=== PATIENT | female | born 1985 | race Caucasian/White ===

== ENCOUNTER 2021-07-10 14:41 | Emergency (ER) | payer SELFPAY ==
[2021-07-10 14:58] VITALS: O2SAT 100
--- NOTE | 2021-07-10 15:35 | ERPHSYRPT ---
- History of Present Illness Time Seen by Provider: 07/10/21 14:44 Source: patient Exam Limitations: no limitations Patient Subjective Stated Complaint: Pt states that she had some pressure behind her eyes last night and then in the parking lot she felt like something was stuck in her throat and she spit up blood, no pressure in her eyes today but that is why she originally came here Triage Nursing Assessment: Pt was brought to the ER by her mother, tachycardic, denies pain, tearful, denies pain in eyes today but states that's why she came in, states that it feels like something is stuck in her throat but this just began in the parking lot, skin n/w/d, no difficulties with breathing, spitting in a bag, doesn't appear to be in any distress Physician History: 36 years old female presented in the ER with chief complaint of spitting up blood prior to arrival. Patient reports she was in the parking lot and felt as if something is stuck in her throat and spitted up a streak of blood 1 time. She complained of some scratchiness in the throat since last night without any difficulty swallowing or breathing. Denies any fever or chills. Patient also reports having pain behind her eyeballs yesterday which improved and currently she does not have any symptoms. Denies any blurry vision/double vision/numbness tingling or focal weakness now are yesterday. Patient is very anxious. Allergies/Adverse Reactions: latex Allergy (Verified 07/10/21 14:57) Home Medications: No Reportable Medications [No Reported Medications] 07/10/21 [History] Hx Tetanus, Diphtheria Vaccination/Date Given: Yes (3 years ago) Hx Influenza Vaccination/Date Given: No Hx Pneumococcal Vaccination/Date Given: No Travel Risk - International Travel Have you traveled outside of the country in past 3 weeks: No - Coronavirus Screening Are you exhibiting any of the following symptoms?: No Close contact with a COVID-19 positive Pt in past 14-21 Days: No - Vaccine Status Have you recieved a Covid-19 vaccination: No - Review of Systems Constitutional: No Symptoms Eyes: No Symptoms Ears, Nose, & Throat: Throat Pain Respiratory: No Symptoms Cardiac: No Symptoms Abdominal/Gastrointestinal: No Symptoms Genitourinary Symptoms: No Symptoms Musculoskeletal: No Symptoms Skin: No Symptoms Neurological: No Symptoms Psychological: Anxiety Endocrine: No Symptoms Hematologic/Lymphatic: No Symptoms Immunological/Allergic: No Symptoms - Past Medical History Pertinent Past Medical History: Yes Neurological History: No Pertinent History ENT History: No Pertinent History Cardiac History: Arrhythmia Respiratory History: No Pertinent History Endocrine Medical History: No Pertinent History Musculoskeletal History: No Pertinent History GI Medical History: No Pertinent History History: No Pertinent History Psycho-Social History: Anxiety Female Reproductive Disorders: No Pertinent History - Past Surgical History Past Surgical History: Yes Neuro Surgical History: No Pertinent History Cardiac: No Pertinent History Respiratory: No Pertinent History Gastrointestinal: No Pertinent History Genitourinary: No Pertinent History Musculoskeletal: No Pertinent History Female Surgical History: Section - Social History Smoking Status: Current every day smoker How long have you smoked: 15 Exposure to second hand smoke: Yes Drug Use: none Patient Lives Alone: No Significant Family History: STONES - Female History Hx Last Menstrual Period: 06/13/2021 Hx Now: No - Nursing Vital Signs Nursing Vital Signs: Initial Vital Signs Temperature 98.5 F 07/10/21 14:44 Pulse Rate 111 H 07/10/21 14:44 Blood Pressure 138/76 07/10/21 14:44 O2 Sat by Pulse Oximetry 100 07/10/21 14:44 Pain Scale Pain Intensity 0 - Physical Exam General Appearance: no apparent distress, alert, anxiety Eye Exam: bilateral eye: normal inspection, PERRL, EOMI Ear Exam: bilateral ear: auricle normal, canal normal, TM normal Nasal Exam: normal inspection Throat Exam: moist mucus membranes, pharynx tenderness (Mild diffuse erythema oropharynx with some postnasal drip. 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, normal mood/affect (Anxious), nml cerebellar function, nml station & gait, sensation nml, motor deficits (Some chronic weakness right upper extremity) Skin Exam: normal color SpO2 Interpretation: normal SpO2: 100 O2 Delivery: Room Air - Course EKG Interpreted by Me: RATE (89), Sinus Rhythm, NORMAL AXIS, NORMAL INTERVALS, NORMAL QRS Ordered Tests: Active Orders 24 hr Category Date Time Status Tele-Health Consult ROUTINE Cons 12/31/21 16:01 Active HEAD WITHOUT CONTRAST [CT] Stat Exams 07/10/21 16:32 Completed CBC W DIFF Stat Lab 07/10/21 16:16 Completed CMP Stat Lab 07/10/21 16:16 Completed CULTURE,URINE Stat Lab 07/10/21 16:01 Received HCG,QUALITATIVE URINE Stat Lab 07/10/21 16:00 Completed TROPONIN Q3H Lab 07/10/21 16:16 Completed TROPONIN Q3H Lab 07/10/21 19:15 Ordered TROPONIN Q3H Lab 07/10/21 22:15 Ordered UA W/RFX UR CULTURE Stat Lab 07/10/21 16:01 Completed Urine Triage Profile Stat Lab 07/10/21 16:01 Completed Lab/Rad Data: Laboratory Result Diagrams 07/10/21 16:16 07/10/21 16:16 Laboratory Results 07/10/21 07/10/21 07/10/21 Range/Units 16:16 16:16 16:16 WBC 5.5 (4.0-10.5) K/mm3 RBC 4.64 (4.1-5.4) M/mm3 Hgb 14.0 (12.0-16.0) gm/dl Hct 41.2 (35-47) % MCV 88.8 (78-100) fl MCH 30.2 (26-32) pg MCHC 34.0 (32-36) g/dl RDW 13.0 (11.5-14.0) % Plt Count 229 (150-450) K/mm3 MPV 10.4 (7.5-11.0) fl Gran % 58.3 (36.0-66.0) % Eos # (Auto) 0.08 (0-0.5) Absolute Lymphs (auto) 1.67 (1.0-4.6) Absolute Monos (auto) 0.52 (0.0-1.3) Lymphocytes % 30.5 (24.0-44.0) % Monocytes % 9.5 (0.0-12.0) % Eosinophils % 1.5 (0.00-5.0) % Basophils % 0.2 (0.0-0.4) % Absolute Granulocytes 3.19 (1.4-6.9) Basophils # 0.01 (0-0.4) Sodium 138 (137-145) mmol/L Potassium 3.7 (3.5-5.1) mmol/L Chloride 103 (98-107) mmol/L Carbon Dioxide 25 (22-30) mmol/L Anion Gap 13.4 (5-15) MEQ/L BUN 11 (7-17) mg/dL Creatinine 0.57 (0.52-1.04) mg/dL Estimated GFR > 60.0 ML/MIN Glucose 91 (74-106) mg/dL Calcium 9.3 (8.4-10.2) mg/dL Total Bilirubin 0.50 (0.2-1.3) mg/dL AST 17 (14-36) U/L ALT 11 (0-35) U/L Alkaline Phosphatase 55 (38-126) U/L Troponin I < 0.012 (0.000-0.034) ng/mL Serum Total Protein 7.2 (6.3-8.2) g/dL Albumin 4.3 (3.5-5.0) g/dL Urine Color (YELLOW) Urine Appearance (CLEAR) Urine pH (5-6) Ur Specific [place] (1.005-1.025) Urine Protein (Negative) Urine Ketones (NEGATIVE) Urine Blood (0-5) Pepe/ul Urine Nitrite (NEGATIVE) Urine Bilirubin (NEGATIVE) Urine Urobilinogen (0-1) mg/dL Ur Leukocyte Esterase (NEGATIVE) Urine WBC (Auto) (0-5) /HPF Urine RBC (Auto) (0-2) /HPF U Epithel Cells (Auto) (FEW) /HPF Urine Bacteria (Auto) (NEGATIVE) /HPF Urine Mucus (Auto) (NEGATIVE) /HPF Urine Culture Reflexed (NO) Urine Glucose (NEGATIVE) mg/dL Urine HCG, Qual (Negative) Urine Opiates Level (NEGATIVE) Ur Methadone (NEGATIVE) Urine Barbiturates (NEGATIVE) Ur Phencyclidine (PCP) (NEGATIVE) Urine Amphetamine (NEGATIVE) U Benzodiazepine Level (NEGATIVE) Urine Cocaine (NEGATIVE) Urine Marijuana (THC) (NEGATIVE) Group A Strep Antibody (NEGATIVE) 07/10/21 07/10/21 07/10/21 Range/Units 16:01 16:01 16:00 WBC (4.0-10.5) K/mm3 RBC (4.1-5.4) M/mm3 Hgb (12.0-16.0) gm/dl Hct (35-47) % MCV (78-100) fl MCH (26-32) pg MCHC (32-36) g/dl RDW (11.5-14.0) % Plt Count (150-450) K/mm3 MPV (7.5-11.0) fl Gran % (36.0-66.0) % Eos # (Auto) (0-0.5) Absolute Lymphs (auto) (1.0-4.6) Absolute Monos (auto) (0.0-1.3) Lymphocytes % (24.0-44.0) % Monocytes % (0.0-12.0) % Eosinophils % (0.00-5.0) % Basophils % (0.0-0.4) % Absolute Granulocytes (1.4-6.9) Basophils # (0-0.4) Sodium (137-145) mmol/L Potassium (3.5-5.1) mmol/L Chloride (98-107) mmol/L Carbon Dioxide (22-30) mmol/L Anion Gap (5-15) MEQ/L BUN (7-17) mg/dL Creatinine (0.52-1.04) mg/dL Estimated GFR ML/MIN Glucose (74-106) mg/dL Calcium (8.4-10.2) mg/dL Total Bilirubin (0.2-1.3) mg/dL AST (14-36) U/L ALT (0-35) U/L Alkaline Phosphatase (38-126) U/L Troponin I (0.000-0.034) ng/mL Serum Total Protein (6.3-8.2) g/dL Albumin (3.5-5.0) g/dL Urine Color ROBYN (YELLOW) Urine Appearance TURBID (CLEAR) Urine pH 5.0 (5-6) Ur Specific [place] 1.027 (1.005-1.025) Urine Protein 100 (Negative) Urine Ketones TRACE (NEGATIVE) Urine Blood SMALL (0-5) Pepe/ul Urine Nitrite NEGATIVE (NEGATIVE) Urine Bilirubin NEGATIVE (NEGATIVE) Urine Urobilinogen 2 (0-1) mg/dL Ur Leukocyte Esterase MODERATE (NEGATIVE) Urine WBC (Auto) >100 (0-5) /HPF Urine RBC (Auto) NONE (0-2) /HPF U Epithel Cells (Auto) FEW (FEW) /HPF Urine Bacteria (Auto) PACKED (NEGATIVE) /HPF Urine Mucus (Auto) MANY (NEGATIVE) /HPF Urine Culture Reflexed YES (NO) Urine Glucose NEGATIVE (NEGATIVE) mg/dL Urine HCG, Qual NEGATIVE (Negative) Urine Opiates Level NEGATIVE (NEGATIVE) Ur Methadone NEGATIVE (NEGATIVE) Urine Barbiturates NEGATIVE (NEGATIVE) Ur Phencyclidine (PCP) NEGATIVE (NEGATIVE) Urine Amphetamine POSITIVE (NEGATIVE) U Benzodiazepine Level NEGATIVE (NEGATIVE) Urine Cocaine NEGATIVE (NEGATIVE) Urine Marijuana (THC) NEGATIVE (NEGATIVE) Group A Strep Antibody (NEGATIVE) 07/10/21 Range/Units 15:25 WBC (4.0-10.5) K/mm3 RBC (4.1-5.4) M/mm3 Hgb (12.0-16.0) gm/dl Hct (35-47) % MCV (78-100) fl MCH (26-32) pg MCHC (32-36) g/dl RDW (11.5-14.0) % Plt Count (150-450) K/mm3 MPV (7.5-11.0) fl Gran % (36.0-66.0) % Eos # (Auto) (0-0.5) Absolute Lymphs (auto) (1.0-4.6) Absolute Monos (auto) (0.0-1.3) Lymphocytes % (24.0-44.0) % Monocytes % (0.0-12.0) % Eosinophils % (0.00-5.0) % Basophils % (0.0-0.4) % Absolute Granulocytes (1.4-6.9) Basophils # (0-0.4) Sodium (137-145) mmol/L Potassium (3.5-5.1) mmol/L Chloride (98-107) mmol/L Carbon Dioxide (22-30) mmol/L Anion Gap (5-15) MEQ/L BUN (7-17) mg/dL Creatinine (0.52-1.04) mg/dL Estimated GFR ML/MIN Glucose (74-106) mg/dL Calcium (8.4-10.2) mg/dL Total Bilirubin (0.2-1.3) mg/dL AST (14-36) U/L ALT (0-35) U/L Alkaline Phosphatase (38-126) U/L Troponin I (0.000-0.034) ng/mL Serum Total Protein (6.3-8.2) g/dL Albumin (3.5-5.0) g/dL Urine Color (YELLOW) Urine Appearance (CLEAR) Urine pH (5-6) Ur Specific [place] (1.005-1.025) Urine Protein (Negative) Urine Ketones (NEGATIVE) Urine Blood (0-5) Pepe/ul Urine Nitrite (NEGATIVE) Urine Bilirubin (NEGATIVE) Urine Urobilinogen (0-1) mg/dL Ur Leukocyte Esterase (NEGATIVE) Urine WBC (Auto) (0-5) /HPF Urine RBC (Auto) (0-2) /HPF U Epithel Cells (Auto) (FEW) /HPF Urine Bacteria (Auto) (NEGATIVE) /HPF Urine Mucus (Auto) (NEGATIVE) /HPF Urine Culture Reflexed (NO) Urine Glucose (NEGATIVE) mg/dL Urine HCG, Qual (Negative) Urine Opiates Level (NEGATIVE) Ur Methadone (NEGATIVE) Urine Barbiturates (NEGATIVE) Ur Phencyclidine (PCP) (NEGATIVE) Urine Amphetamine (NEGATIVE) U Benzodiazepine Level (NEGATIVE) Urine Cocaine (NEGATIVE) Urine Marijuana (THC) (NEGATIVE) Group A Strep Antibody NOT DETECTED (NEGATIVE) - Progress Progress: improved Progress Note: 07/10/21 18:34 36-year-old is evaluated for sore throat with some blood and strep throat is negative. Later her mom showed up and she reported that patient is lately not acting very well and she has been using methamphetamine which patient did admit using last night. She does have history of hallucination in the past. She she broke up in 2 years and wants some help. She denies any suicidal or homicidal ideations on repeated questioning and mom does attest that she did not ever have any thing like SI/HI. She has an nonfocal neuro exam otherwise. She did agree with CT head and it is obtained which is negative. Work-up otherwise is negative except for urine drug screen positive for amphetamines which patient did admit. She is counseled. She is medically cleared otherwise and behavioral health evaluation was recommended. Earliest evaluation available is around midnight and patient/family want to leave and they will follow-up outpatient with [facility]. I think is reasonable as her symptoms of hallucination and headache are more secondary to substance abuse. 07/10/21 18:38 Counseled pt/family regarding: lab results, diagnosis, need for follow-up - Departure Departure Disposition: Home Clinical Impression: Drug abuse Pharyngitis Qualifiers: Pharyngitis/tonsillitis etiology: unspecified etiology Qualified Code(s): J02.9 - Acute pharyngitis, unspecified Condition: Stable Critical Care Time: No Referrals: JUANJOSE ALBERTO MD [Primary Care Provider] - Follow Up with PCP/3 days Instructions: Sore Throat, Adult (DC), Drug Abuse and Drug Addiction (DC) Additional Instructions: Take Tylenol as needed. Follow-up with primary care for reevaluation. Follow- up with [facility] for outpatient reevaluation early next week. Return to ER if having difficulty swallowing/breathing or if having headache, blurry vision, numbness tingling or focal weakness..
[2021-07-10 16:19] LABS: Appearance TURBID (CLEAR); Bacteria PACKED /HPF (NEGATIVE); Bilirubin NEGATIVE (NEGATIVE); Blood SMALL Ery/ul (0-5); Epithelial Cells FEW /HPF (FEW); Glucose NEGATIVE (NEGATIVE); Ketones TRACE (NEGATIVE); Leukocyte Esterase MODERATE (NEGATIVE); Mucus MANY /HPF (NEGATIVE); Nitrite NEGATIVE (NEGATIVE); Protein,Urine Dip 100 (Negative); Specific Gravity 1.027 (1.005-1.025); Urobilinogen 2 mg/dL (0-1); WBC >100 /HPF (0-5)
[2021-07-10 16:28] LABS: Absolute Neutrophil Ct (ANC) 3.19 (1.4-6.9); Basophil (Absolute #) 0.01 (0-0.4); Eosinophil % 1.5 % (0.00-5.0); Eosinophil (Absolute #) 0.08 (0-0.5); Hematocrit 41.2 % (35-47); Lymphocyte (Absolute #) 1.67 (1.0-4.6); Lymphocytes % 30.5 % (24.0-44.0); Mean Cell Volume 88.8 fl (78-100); Mean Corpuscular Hemoglobin 30.2 pg (26-32); Mean Platelet Volume 10.4 fl (7.5-11.0); Monocyte (Absolute #) 0.52 (0.0-1.3); Monocytes % 9.5 % (0.0-12.0); Neutrophil % 58.3 % (36.0-66.0); Platelet Count 229 K/mm3 (150-450); Red Blood Count 4.64 M/mm3 (4.1-5.4); White Blood Count 5.5 K/mm3 (4.0-10.5)
[2021-07-10 16:30] LABS: Barbiturate,Urine NEGATIVE (NEGATIVE); Benzodiazepine,Urine NEGATIVE (NEGATIVE); Methadone,Urine NEGATIVE (NEGATIVE); Opiate,Urine NEGATIVE (NEGATIVE); PCP,Urine NEGATIVE (NEGATIVE); THC,Urine NEGATIVE (NEGATIVE)
[2021-07-10 16:38] LABS: ALBUMIN 4.3 g/dL (3.5-5.0); ALKALINE PHOSPHATASE 55 U/L (38-126); ANION GAP 13.4 MEQ/L (5-15); BLOOD UREA NITROGEN 11 mg/dL (7-17); CHLORIDE 103 mmol/L (98-107); Calcium 9.3 mg/dL (8.4-10.2); Carbon Dioxide 25 mmol/L (22-30); Creatinine 1 0.57 mg/dL (0.52-1.04); EST GLOMERULAR FILTRATION RATE > 60.0 ML/MIN; Glucose 91 mg/dL (74-106); Potassium 3.7 mmol/L (3.5-5.1); SGOT/AST 17 U/L (14-36); SGPT/ALT 11 U/L (0-35); SODIUM 138 mmol/L (137-145); Total Protein 7.2 g/dL (6.3-8.2)
--- NOTE | 2021-07-10 16:50 | XRAY ---
Indication: Headache. Multiple contiguous axial images obtained through the head without contrast. Comparison: May 06, 2013. Normal appearing brain parenchyma, ventricles, and bony calvarium. Visualized paranasal sinuses and mastoid air cells are clear. Impression: Continued normal CT head without contrast exam.
[2021-07-10 17:19] LABS: Cocaine,Urine NEGATIVE (NEGATIVE)
[2021-07-10 17:32] VITALS: BP 109/77; PULSE 84
[2021-07-10 17:50] LABS: Amphetamine,Urine POSITIVE (NEGATIVE)
== END 2021-07-10 18:41 | disposition home or self-care (01) ==
LOC: ED 14:41
DX: J02.9 Acute pharyngitis, unspecified (principal); F15.10 Other stimulant abuse, uncomplicated; F41.9 Anxiety disorder, unspecified; Z72.0 Tobacco use
CPT/HCPCS: 36415; 70450; 80053; 80307; 81001; 84484; 84703; 85025; 87077; 87086; 87186; 87651; 93005; 99284

== ENCOUNTER 2023-02-16 01:34 | Emergency (ER) | payer SELFPAY ==
[2023-02-16 01:39] VITALS: RESP 16; O2SAT 100
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
[2023-02-16 02:55] VITALS: BP 99/64; PULSE 83; TEMP 97.4
== END 2023-02-16 02:52 | disposition home or self-care (01) ==
LOC: ED 01:34
DX: F10.129 Alcohol abuse with intoxication, unspecified (principal); Z28.310 Unvaccinated for COVID-19
CPT/HCPCS: 99281

== ENCOUNTER 2023-03-23 21:44 | Emergency (ER) | payer MEDICAID ==
[2023-03-23 22:09] VITALS: TEMP 97.5
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
[2023-03-23 22:43] VITALS: BP 124/91; PULSE 80; RESP 16
[2023-03-23 22:46] VITALS: O2SAT 100
== END 2023-03-23 22:47 | disposition home or self-care (01) ==
LOC: ED 21:44
DX: Z00.00 Encounter for general adult medical examination without abnormal findings (principal); R51.9 Headache, unspecified; Z28.310 Unvaccinated for COVID-19; Z72.0 Tobacco use
CPT/HCPCS: 99283